=== PATIENT | female | born 1935 | race Caucasian/White ===

== ENCOUNTER → 2022-05-31 08:45 | Outpatient (CLI) | payer MEDICARE, SELFPAY ==
--- NOTE | ~2022-05-31 | MR_ITS ---
EXAMINATION: MR lumbar spine wo/w con DATE: 05/31/2022 09:35 INDICATION: Low back pain and left leg pain and numbness. TECHNIQUE: Magnetic resonance imaging (MRI) of the lumbar spine was performed without and with 12 mL Multihance intravenous contrast. Sequences included sagittal T2-weighted FSE, sagittal T2-weighted FS FSE, and sagittal and axial T1-weighted FSE. Postcontrast sequences included axial T2-weighted FSE, sagittal T1-weighted FSE, and axial and sagittal T1-weighted FS FSE. COMPARISON: 11/21/2018 and FINDINGS: Minimal S-shaped curvature of the lumbar and lower thoracic spine with subtle convex right curvature of the upper lumbar spine and convex left curvature of the lower lumbar spine. 2 mm anterolisthesis L 5 with respect to both L4 and S1. No evident associated spondylolysis. Alignment is otherwise normal. Vertebral body heights are normal. T1 and T2 hyperintense and enhancing likely hemangioma at the rig ht posterior aspect of the L5 vertebral body which is without significant interval change since 2014. Marrow signal is otherwise normal. No other abnormally enhancing lesions identified. No significant change in moderate to severe disc height loss with degenerative endplate changes at L4-L5 and L5-S1. This desiccation mild disc height loss at T10-T11 through L1-L2. The conus medullaris terminates at L 1-L2. There is normal signal in the caudal spinal cord. 8 mm T2 hyperintense nonenhancing right renal cyst. Paravertebral soft tissues are otherwise unremarkable. The following disc levels are specifica lly discussed: T12-L1: Disc is minimally bulging. There is mild bilateral facet joint osteoarthritis. There is no ne ural foraminal stenosis. There is no central canal stenosis. L1-L2: Mild diffuse disc bulge. There is mild bilateral facet joint osteoarthritis. There is no neura l foraminal stenosis. There is no central canal stenosis. L2-L3: Mild diffuse disc bulge. There is mild left and mild to moderate right facet joint osteoarthri tis. There is mild left neural foraminal stenosis. There is no central canal stenosis. L3-L4: Mild diffuse disc bulge. There is mild bilateral facet joint osteoarthritis. There is mild lef t and minimal right neural foraminal stenosis. There is no central canal stenosis. L4-L5: Eccentric to the right mild posterior disc osteophyte complex. Unilateral mild hypertrophy of the right ligamentum flavum. Suggestion of a prior left hemilaminotomy. There is severe left and mode rate to severe right facet joint osteoarthritis. There is moderate bilateral neural foraminal stenosi s. There is mild central canal stenosis. L5-S1: Disc is mildly bulging with superimposed annular fissure. Unchanged mild hypertrophy of the ri ght ligamentum flavum. Suggestion of prior left hemilaminotomy. There is severe bilateral facet joint osteoarthritis. There is moderate right and moderate to severe left neural foraminal stenosis. There is no central canal stenosis. IMPRESSION: 1. Moderate to severe lower lumbar spondylosis with mild spondylosis in the more cephalad upper lumba r and lower thoracic spine. Reviewed, dictated and finalized at location A. [employer] IMPRESSION: 1. 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
== END ==
PROVIDERS: PCP Nurse Practitioner Family; Visit Provider Nurse Practitioner Family
DX: M47.896 Other spondylosis, lumbar region (principal)
CPT/HCPCS: 72158; A9577